=== PATIENT | male | born 1995 | race Caucasian/White ===

== ENCOUNTER 2024-04-22 08:42 | Emergency (ER) | payer SELFPAY ==
[~2024-04-22] VITALS: Ht 172.7 cm; Wt 104.3 kg
[2024-04-22 08:45] VITALS: PULSE 73; RESP 18; TEMP 98.5
[2024-04-22] MEDS: DIPHENHYDRAMINE HCL INJ 50 MG/ML VIAL IV ONE (09:24)
[2024-04-22] MEDS: METOCLOPRAMIDE HCL 10 MG/2ML VIAL IV ONE (09:24)
[2024-04-22] MEDS: SODIUM CHLORIDE 0.9% 1000ML 1,000 ML IV STA (09:25)
[2024-04-22] MEDS: KETOROLAC TROMETHAMINE 30 MG/ML VIAL IV STA (09:25)
[2024-04-22] MEDS ORDERED: FIORICET 50-301 EACH PO (10:14)
[2024-04-22 10:45] VITALS: BP 127/84; PULSE 71; RESP 18; TEMP 98.3; O2SAT 98
== END 2024-04-22 10:46 | disposition home or self-care (01) ==
LOC: ER 08:48
DX: R51.9 Headache, unspecified (principal); Z11.52 Encounter for screening for COVID-19
CPT/HCPCS: 87400; 99283; J1200; J1885; J2765; J7030; U0002